=== PATIENT | female | born 1945 | race American Indian/Alaskan Native ===

== ENCOUNTER 2016-08-20 14:21 | Outpatient (CLI) | payer MEDICARE ==
--- NOTE | 2016-08-20 16:03 | Mammography Report ---
BILATERAL MAMMOGRAM: FINDINGS: The breast tissue is heterogeneously dense, which could obscure detection of small masses (approximately 50%-75% glandular). No mass, distortion, suspicious calcification, or skin change is seen. Compared to her prior examinations dating back to 2013 no significant change is identified. CAD was utilized. IMPRESSION: Negative mammogram. There is no mammographic evidence of malignancy. RECOMMENDATION: Follow-up per ACS guidelines. BI-RADS CATEGORY: 1 = Negative ACR BI-RADS MAMMOGRAPHIC CODES: 0 = Needs additional imaging evaluation; 1 = Negative; 2 = Benign; 3 = Probably benign; 4 = Suspicious; 5 = Malignant; 6 = Known biopsy-proven malignancy COMMENT: 1. Dense breast tissue, i.e., adenosis, fibrocystic changes, etc., may obscure an underlying neoplasm. 2. Approximately 10% of cancers are not detected with mammography. 3. A negative mammography report should not delay biopsy if a clinically suspicious mass is present. COMMENT: Patient follow-up letters are generated in [employer].
== END 2016-08-20 14:22 | disposition home or self-care (01) ==
LOC: MAMMO 14:21
PROVIDERS: ATTEND Family Medicine
DX: Z12.31 Encounter for screening mammogram for malignant neoplasm of breast (principal)
CPT/HCPCS: 77067; G0202

== ENCOUNTER 2017-01-12 13:15 | Outpatient (CLI) | payer MEDICARE ==
[2017-01-12 13:40] LABS: Hematocrit 39.4 % (30.3-42.9); Hemoglobin 12.9 gm/dl (10.1-14.3); Mean Corpuscular HGB Conc 33 % (30-34); Mean Corpuscular Hemoglobin 28 pg (28-32); Mean Corpuscular Volume 84 fl (79-97); Platelet Count 169 K/mm3 (140-440); Red Blood Count 4.67 M/mm3 (3.65-5.03); Red Cell Distribution Width 14.8 % (13.2-15.2); White Blood Count 4.9 K/mm3 (4.5-11.0)
[2017-01-12 14:05] LABS: Alanine Aminotransferase 10 units/L (7-56); Albumin 4.4 g/dL (3.9-5); Albumin/Globulin Ratio 1.3 %; Alkaline Phosphatase 139 units/L (35-129); Anion Gap 17 mmol/L; BUN/Creatinine Ratio 8.75; Blood Urea Nitrogen 7 mg/dL (7-17); Calcium 10.3 mg/dL (8.4-10.2); Carbon Dioxide 26 mmol/L (22-30); Chloride 106.4 mmol/L (98-107); Glucose 85 mg/dL (65-100); Potassium 3.6 mmol/L (3.6-5.0); Sodium 146 mmol/L (137-145); Total Protein 7.8 g/dL (6.3-8.2)
== END 2017-01-12 13:16 | disposition home or self-care (01) ==
LOC: LAB 13:15
PROVIDERS: ATTEND Specialist
DX: Z01.812 Encounter for preprocedural laboratory examination (principal); E21.5 Disorder of parathyroid gland, unspecified; I10 Essential (primary) hypertension
CPT/HCPCS: 36415; 80053; 83970; 85027

== ENCOUNTER 2018-01-18 08:34 | Outpatient (CLI) | payer MEDICARE ==
--- NOTE | 2018-01-18 15:31 | Mammography Report ---
BILATERAL DIGITAL SCREENING MAMMOGRAM with CAD: 01/18/18 08:34:00 CLINICAL: Routine screening. COMPARISON:08/20/16 and 09/14/14 FINDINGS: The breasts are heterogeneously dense, which may obscure small masses. A right asymmetry on the MLO view requires additional imaging.No architectural distortion or suspicious calcifications.A prominent skinfold on the left CC view requires a repeat of the left CC view. IMPRESSION: Right asymmetry requiring further workup and a left skin fold requiring a repeat left CC view.. BI-RADS CATEGORY: 0 -- Additional Imaging Evaluation Required RECOMMENDATION: Recall for right true lateral and spot compression MLO views and right breast ultrasound if needed. Repeat left CC view. ACR BI-RADS MAMMOGRAPHIC CODES: 0 = Needs additional imaging evaluation; 1 = Negative; 2 = Benign; 3 = Probably benign; 4 = Suspicious; 5 = Malignant; 6 = Known biopsy-proven malignancy COMMENT: 1. Dense breast tissue, i.e., adenosis, fibrocystic changes, etc., may obscure an underlying neoplasm. 2. Approximately 10% of cancers are not detected with mammography. 3. A negative mammography report should not delay biopsy if a clinically suspicious mass is present. COMMENT: Patient follow-up letters are generated via our [employer] application.
== END 2018-01-18 08:35 | disposition home or self-care (01) ==
LOC: MAMMO 08:34
PROVIDERS: ATTEND Family Medicine
DX: Z12.31 Encounter for screening mammogram for malignant neoplasm of breast (principal)
CPT/HCPCS: 77067

== ENCOUNTER 2018-08-13 18:31 | Emergency (ER) | payer MEDICARE ==
[2018-08-13] MEDS ORDERED: TYLENOL PO ONE (20:39)
[2018-08-13] MEDS ORDERED: TYLENOL ONE (20:39)
--- NOTE | 2018-08-14 00:05 | Emergency Department Report ---
Chief Complaint: Pain General Stated Complaint: HEADACHE/BODY PAIN Time Seen by Provider: 08/13/18 23:33 - HPI History of Present Illness: This is a 73 year-old female who presents with headache, right sided body pain, and neck pain for 2 weeks. Patient states symptoms have increased over the past few days. She reports headache is 10 out of 10 on pain scale and constant pounding sensation" across her entire head radiating down the movement. Patient states headache is not sensitive to light but it is worse with any movement. Past medical history of chronic kidney disease, HIV, hypertension, and hyperlipidemia. Patient states she was seen by her primary care doctor week ago and told she had a kidney infection and started on nitrofurantoin which she completed. Patient states headache increased after completion of antibiotics. She is taken Tylenol with minimal improvement of symptoms. - ROS Review of Systems: Positive headache, neck pain, and back pain. - Exam Vital Signs: Vital Signs 08/13/18 08/13/18 18:35 20:40 Temperature 97.8 F Pulse Rate 81 Respiratory 20 18 Rate Blood Pressure 114/68 O2 Sat by Pulse 99 Oximetry MSE screening note: Focused history and physical exam performed. Due to findings the following was ordered: Patient will be sent to the maintenance for further workup. Possible CT of the head and labs. ED Disposition for MSE Condition: Stable Referrals: PRIMARY MD YANI [Primary Care Provider] - 3-5 Days
[2018-08-14] MEDS ORDERED: ULTRAM ONE (00:58)
[2018-08-14] MEDS ORDERED: ULTRAM PO ONE (01:19)
--- NOTE | 2018-08-14 01:23 | Cat Scan Report ---
FINAL REPORT PROCEDURE: CT HEAD/BRAIN WO CON TECHNIQUE: Computerized tomography of the head was performed without contrast material. HISTORY: headache COMPARISON: No prior studies are available for comparison. FINDINGS: Skull and scalp: Normal. Paranasal sinuses: Normal. Ventricles and subarachnoid spaces: There is mild central and cortical atrophy. There is no hydroceph alus or asymmetry.. Cerebrum: No evidence of hemorrhage, acute infarction or mass . Cerebellum and brainstem: No evidence of hemorrhage, acute infarction or mass. Vasculature: Normal. Comments: None. IMPRESSION: There is no acute intracranial abnormality.
--- NOTE | 2018-08-14 01:27 | Cat Scan Report ---
FINAL REPORT PROCEDURE: CT NECK WO CON TECHNIQUE: Computerized tomography of the soft tissue neck was performed without contrast material. This study is performed without intravascular contrast material and its sensitivity for pathology, in cluding neoplasms, inflammation, abscess, free fluid, thrombosis, and arterial dissection, is reduced compared with a contrast enhanced study. HISTORY: neck pain COMPARISON: No prior studies are available for comparison. FINDINGS: Skull base: Visualized portions are normal. Paranasal sinuses: Visualized portions are normal. Nasopharynx: Normal. Oral cavity: Normal. Epiglottis/vallecula: Normal. Larynx/pyriform sinuses: Normal. Thyroid gland: Normal. Lymph nodes: None enlarged. Salivary glands: Normal. Upper thorax: Normal. IMPRESSION: Normal Examination.
[2018-08-14 01:31] LABS: Basophils % (Auto) 0.5 % (0.0-1.8); Eosinophils % (Auto) 0.7 % (0.0-4.3); Hematocrit 38.6 % (30.3-42.9); Hemoglobin 12.8 gm/dl (10.1-14.3); Lymphocytes # (Auto) 2.3 K/mm3 (1.2-5.4); Lymphocytes % (Auto) 31.9 % (13.4-35.0); Mean Corpuscular HGB Conc 33 % (30-34); Mean Corpuscular Volume 84 fl (79-97); Monocytes # (Auto) 0.8 K/mm3 (0.0-0.8); Monocytes % (Auto) 10.8 % (0.0-7.3); Platelet Count 208 K/mm3 (140-440); Red Blood Count 4.61 M/mm3 (3.65-5.03); Red Cell Distribution Width 15.7 % (13.2-15.2)
--- NOTE | 2018-08-14 01:51 | Emergency Department Report ---
ED General Adult HPI - General Chief complaint: Pain General Stated complaint: HEADACHE/BODY PAIN Time Seen by Provider: 08/13/18 23:33 Source: patient, family Mode of arrival: Wheelchair Limitations: No Limitations - History of Present Illness Initial comments: This is a 73 year-old female who presents with headache, right sided body pain, and neck pain for 2 weeks. Patient states symptoms have increased over the past few days. She reports headache is 10 out of 10 on pain scale and constant pounding sensation" across her entire head radiating down the neck. Patient states headache is not sensitive to light but it is worse with any movement. Past medical history of chronic kidney disease, HIV, hypertension, and hyperlipidemia. Patient states she was seen by her primary care doctor week ago and told she had a kidney infection and started on nitrofurantoin which she completed. Patient states headache increased after completion of antibiotics. She is taken Tylenol with minimal improvement of symptoms. -: week(s) (2) Location: head Radiation: neck Severity scale (0 -10): 2 Quality: aching, other (pounding) Consistency: constant Improves with: none Worsens with: movement Associated Symptoms: headaches - Related Data Home Medications Medication Instructions Recorded Confirmed Last Taken Propranolol 20 mg PO DAILY 07/06/15 05/30/18 01/20/17 05:30 amLODIPine 10 mg PO DAILY 07/06/15 05/30/18 01/20/17 05:30 Efavirenz/Emtricit/Tenofovr Df 1 each PO QHS 01/13/17 01/13/17 01/19/17 [Atripla Tablet] Megestrol [Megace] 20 mg PO QDAY 01/13/17 05/30/18 01/19/17 Omeprazole 40 mg PO QDAY 01/13/17 01/13/17 01/20/17 05:30 Alendronate Sodium [Fosamax] 70 mg PO 05/30/18 Unknown AtorvaSTATin 10 mg 05/30/18 Unknown Biktarvy 50-200-25 mg Tablet 1 tab 05/30/18 Unknown Gabapentin [Neurontin] 100 mg PO Q8HR 05/30/18 05/30/18 Unknown Topiramate [Topamax] 25 mg PO 05/30/18 Unknown Previous Rx's Medication Instructions Recorded Last Taken Type Ondansetron [Zofran Odt] 4 mg PO Q8HR PRN #14 tab.rapdis 05/30/18 Unknown Rx traMADol [Ultram 50 MG tab] 50 mg PO Q4HR PRN #14 tablet 08/14/18 Unknown Rx Allergies Allergy/AdvReac Type Severity Reaction Status Date / Time No Known Allergies Allergy Verified 08/13/18 18:50 ED Review of Systems ROS: Stated complaint: HEADACHE/BODY PAIN Other details as noted in HPI Comment: All other systems reviewed and negative Neurological: headache ED Past Medical Hx - Past Medical History Previous Medical History?: Yes Hx Hypertension: Yes Hx HIV: Yes Additional medical history: chronic kidney disease, high cholesterol - Surgical History Past Surgical History?: Yes Additional Surgical History: C section, neck surgery - Social History Smoking Status: Never Smoker Substance Use Type: None - Medications Home Medications: Home Medications Medication Instructions Recorded Confirmed Last Taken Type Propranolol 20 mg PO DAILY 07/06/15 05/30/18 01/20/17 05:30 History amLODIPine 10 mg PO DAILY 07/06/15 05/30/18 01/20/17 05:30 History Efavirenz/Emtricit/Tenofovr Df 1 each PO QHS 01/13/17 01/13/17 01/19/17 History [Atripla Tablet] Megestrol [Megace] 20 mg PO QDAY 01/13/17 05/30/18 01/19/17 History Omeprazole 40 mg PO QDAY 01/13/17 01/13/17 01/20/17 05:30 History Alendronate Sodium [Fosamax] 70 mg PO 05/30/18 Unknown History AtorvaSTATin 10 mg 05/30/18 Unknown History Biktarvy 50-200-25 mg Tablet 1 tab 05/30/18 Unknown History Gabapentin [Neurontin] 100 mg PO Q8HR 05/30/18 05/30/18 Unknown History Ondansetron [Zofran Odt] 4 mg PO Q8HR PRN #14 tab.rapdis 05/30/18 Unknown Rx Topiramate [Topamax] 25 mg PO 05/30/18 Unknown History traMADol [Ultram 50 MG tab] 50 mg PO Q4HR PRN #14 tablet 08/14/18 Unknown Rx ED Physical Exam - General Limitations: No Limitations General appearance: alert, in no apparent distress - Head Head exam: Present: atraumatic, normocephalic - Eye Eye exam: Present: normal appearance - ENT ENT exam: Present: mucous membranes moist - Neck Neck exam: Present: normal inspection - Respiratory Respiratory exam: Present: normal lung sounds bilaterally. Absent: respiratory distress - Cardiovascular Cardiovascular Exam: Present: regular rate, normal rhythm. Absent: systolic murmur, diastolic murmur, rubs, gallop - GI/Abdominal GI/Abdominal exam: Present: soft, normal bowel sounds - Extremities Exam Extremities exam: Present: normal inspection - Back Exam Back exam: Present: normal inspection - Neurological Exam Neurological exam: Present: alert, oriented X3 - Expanded Neurological Exam Expanded Cranial nerves: EOM's Intact: Normal, Gag Reflex: Normal, Tongue Deviation: Normal, Nystagmus: Normal, Facial Sensation: Normal, Facial Palsy with Forehead Movement: Normal, Facial Palsy without Forehead Movement: Normal Cerebellar function: Finger to Nose: Normal, Heel to Maria: Normal, Romberg: Normal Upper motor neuron: Crescencio Neglect: Normal, Pronator Drift: Normal Sensory exam: Upper Extremity Light Touch: Normal, Upper Extremity Pin Prick: Normal, Upper Extremity Temperature: Normal, UE 2 Point Discrimination: Normal, Lower Extremity Light Touch: Normal, Lower Extremity Pin Prick: Normal, Lower Extremity Temperature: Normal, LE 2 Point Discrimination: Normal Motor strength exam: RUE: 4, LUE: 4, RLE: 4, LLE: 4 Best Eye Response ([place]): (4) open spontaneously Best Motor Response ([place]): (6) obeys commands Best Verbal Response (Aram): (5) oriented Aram Total: 15 - Psychiatric Psychiatric exam: Present: normal affect, normal mood - Skin Skin exam: Present: warm, dry, intact, normal color. Absent: rash ED Course Vital Signs 08/13/18 08/13/18 18:35 20:40 Temperature 97.8 F Pulse Rate 81 Respiratory 20 18 Rate Blood Pressure 114/68 O2 Sat by Pulse 99 Oximetry - Reevaluation(s) Reevaluation #1: 08/14/18 02:27 Patient reports her headache has improved after having pain medication. ED Medical Decision Making - Lab Data Result diagrams: 08/14/18 01:16 - Radiology Data Radiology results: report reviewed FINAL REPORT PROCEDURE: CT HEAD/BRAIN WO CON TECHNIQUE: Computerized tomography of the head was performed without contrast material. HISTORY: headache COMPARISON: No prior studies are available for comparison. FINDINGS: Skull and scalp: Normal. Paranasal sinuses: Normal. Ventricles and subarachnoid spaces: There is mild central and cortical atrophy. There is no hydrocephalus or asymmetry.. Cerebrum: No evidence of hemorrhage, acute infarction or mass . Cerebellum and brainstem: No evidence of hemorrhage, acute infarction or mass. Vasculature: Normal. Comments: None. IMPRESSION: There is no acute intracranial abnormality. Transcribed By: CO Dictated By: HERMELINDA ESPARZA MD Electronically Authenticated By: HERMELINDA ESPARZA MD Signed Date/Time: 08/14/18122 DD/ 4 TD/TT: 08/14/18124 - Medical Decision Making Patient has been evaluated by this provider in fast track. Patient was given Tylenol in triage and tramadol in fast track for pain management. Patient had basic labs CBC CMP ESR lactic acid and a CT of head and neck. Discussed the patient all laps are stable x-rays/CTs were within normal limits. Discussed the patient to follow up with Tika Miller her primary care provider. Discharge patient with tramadol 50 mg every 6 hours when necessary. Critical care attestation.: If time is entered above; I have spent that time in minutes in the direct care of this critically ill patient, excluding procedure time. ED Disposition Clinical Impression: Headache Qualifiers: Headache type: unspecified Headache chronicity pattern: acute headache Intractability: intractable Qualified Code(s): R51 - Headache Disposition: - TO HOME OR SELFCARE Is pt being admited?: No Does the pt Need Aspirin: No Condition: Stable Instructions: Acute Headache (ED) Additional Instructions: Please take pain medication as needed. Please make an appointment with Dr. Tika Miller on Thursday. Prescriptions: traMADol [Ultram 50 MG tab] 50 mg PO Q4HR PRN #14 tablet PRN Reason: Pain Referrals: PRIMARY CARE, [Primary Care Provider] - 3-5 Days Forms: Accompanied Note
[2018-08-14 01:53] LABS: Alanine Aminotransferase 6 units/L (7-56); Albumin 4.6 g/dL (3.9-5); BUN/Creatinine Ratio 10; Blood Urea Nitrogen 8 mg/dL (7-17); Calcium 9.4 mg/dL (8.4-10.2); Hemolysis Index 6
[2018-08-14 01:57] LABS: Erythrocyte Sedimentation Rate 60 mm/Hr (0-20)
[2018-08-14 02:17] VITALS: BP 106/68
== END 2018-08-14 02:29 | disposition home or self-care (01) ==
LOC: ED 18:31
DX: R51 Headache (principal); M54.2 Cervicalgia; E78.00 Pure hypercholesterolemia, unspecified; I12.9 Hypertensive chronic kidney disease with stage 1 through stage 4 chronic kidney disease, or unspecified chronic kidney disease; N18.9 Chronic kidney disease, unspecified; Z79.899 Other long term (current) drug therapy
CPT/HCPCS: 36415; 70450; 70490; 80053; 82140; 85025; 85652

== ENCOUNTER 2018-09-20 08:50 | Outpatient (CLI) | payer MEDICARE ==
[2018-09-20 09:10] LABS: Hemoglobin 12.4 gm/dl (10.1-14.3); Mean Corpuscular HGB Conc 34 % (30-34); Mean Corpuscular Volume 83 fl (79-97); Platelet Count 169 K/mm3 (140-440); Red Blood Count 4.46 M/mm3 (3.65-5.03); Red Cell Distribution Width 16.6 % (13.2-15.2)
[2018-09-20 09:26] LABS: Albumin 4.3 g/dL (3.9-5); Calcium 9.2 mg/dL (8.4-10.2)
[2018-09-20 09:34] LABS: Erythrocyte Sedimentation Rate 16 mm/Hr (0-20)
== END 2018-09-20 08:51 | disposition home or self-care (01) ==
LOC: LAB 08:50
PROVIDERS: ATTEND Specialist
DX: M51.27 Other intervertebral disc displacement, lumbosacral region (principal); E78.00 Pure hypercholesterolemia, unspecified; I10 Essential (primary) hypertension
CPT/HCPCS: 36415; 80053; 85027; 85652

== ENCOUNTER 2020-01-18 08:06 | Outpatient (CLI) | payer MEDICARE ==
--- NOTE | 2020-01-18 11:09 | Mammography Report ---
BILATERAL DIGITAL SCREENING MAMMOGRAM WITH CAD HISTORY: Screening mammogram. TECHNIQUE: Routine digital mammographic imaging performed. This examination was interpreted with jesús james benefit of Computer-aided Detection analysis. COMPARISON: 01/18/2018, 08/20/2016, 09/14/2014, 09/01/2013. FINDINGS: Breast Density: heterogeneously dense breast parenchymal pattern which somewhat lessens the sensitivi ty of the evaluation. Digital CC and MLO views demonstrate no mammographic evidence of malignancy. Stable benign-appearing calcifications (predominantly vascular) in both breasts. IMPRESSION: No mammographic evidence of malignancy. If the clinical examination remains stable, recommend bilate ral mammogram in approximately one year. BIRADS 2: Benign Finding(s). FURTHER INFORMATION: According to the [employer], yearly mammograms are recommend ed starting at age 40 and continuing as long as a woman is in good health. Clinical Breast Exams shou ld be part of a periodic health exam-about every 3 years for women in their 20s and 30s and every yea r for women 40 and over. Breast self exam is an option for women starting in their 20s. Any breast ch margie noted on a breast self exam should be reported promptly to the patient's healthcare provider. Br east MRI is recommended for women with an approximately 20-25% or greater lifetime risk of breast can cer, including women with a strong family history of breast or ovarian cancer and women who have been treated for Hodgkin's disease. A negative Mammography report should not discourage follow up or biopsy of a clinically significant f inding and/or abnormality. Dense breast tissue may obscure small neoplasms. The patient will be entered into a reminder system with a target due date for the next screening mamm ogram. Signer Name: Kana Royal MD Signed: 01/18/2020 11:04 AM Workstation Name: [id number]
== END 2020-01-18 08:07 | disposition home or self-care (01) ==
LOC: MAMMO 08:06
PROVIDERS: ATTEND Family Medicine
DX: Z12.31 Encounter for screening mammogram for malignant neoplasm of breast (principal)
CPT/HCPCS: 77067

== ENCOUNTER 2021-01-28 09:43 | Outpatient (CLI) | payer MEDICARE ==
--- NOTE | 2021-01-29 10:35 | Mammography Report ---
DIGITAL SCREENING MAMMOGRAM, 01/28/2021 CLINICAL INFORMATION / INDICATION: Routine screening mammography. TECHNIQUE: Digital bilateral 2D mammography was obtained in the craniocaudal and mediolateral obliqu e projections. COMPARISON: 01/18/2020, 01/18/2018 FINDINGS: Breast Density: The breasts are heterogeneously dense, which may obscure small masses. No dominant mass, suspicious calcifications, or architectural distortion in either breast. Bilateral predominantly vascular calcifications are not significantly changed. IMPRESSION: No mammographic evidence of malignancy. Follow up recommendation: Routine yearly BI-RADS Category 2: Benign. A "normal" or negative report should not discourage follow up or biopsy of a clinically significant f inding. A written summary of these findings will be mailed to the patient. The patient will be entered into a mammography reporting system which will generate a reminder letter for the patient's next appointmen t at the appropriate interval. The [employer] recommends yearly mammograms starting at age 40 and continuing as l kimberly as a woman is in good health. Breast MRI is recommended for women with an approximate 20-25% or greater lifetime risk of breast cancer, including women with a strong family history of breast or ova ida cancer or who have been treated for Hodgkin's disease. Signer Name: Kristopher Mahoney MD Signed: 01/29/2021 10:31 AM Workstation Name: [id number]
== END 2021-01-28 09:44 | disposition home or self-care (01) ==
LOC: MAMMO 09:43
PROVIDERS: ATTEND Family Medicine
DX: Z12.31 Encounter for screening mammogram for malignant neoplasm of breast (principal); N64.89 Other specified disorders of breast
CPT/HCPCS: 77067